=== PATIENT | male | born 1960 | race American Indian/Alaskan Native ===

== ENCOUNTER 2019-06-06 18:17 | Emergency (ER) | payer SELFPAY ==
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
[2019-06-06] MEDS ORDERED: TORADOL IM ONE (19:56)
[2019-06-06] MEDS ORDERED: TORADOL ONE (20:09)
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
[2019-06-06 22:03] VITALS: BP 110/72
== END 2019-06-06 22:03 | disposition home or self-care (01) ==
LOC: ED 18:17
DX: S39.012A Strain of muscle, fascia and tendon of lower back, initial encounter (principal); M51.37 Other intervertebral disc degeneration, lumbosacral region; F17.200 Nicotine dependence, unspecified, uncomplicated; Z79.899 Other long term (current) drug therapy; V43.52XA Car driver injured in collision with other type car in traffic accident, initial encounter; Y93.89 Activity, other specified; Y92.488 Other paved roadways as the place of occurrence of the external cause; Y99.8 Other external cause status
CPT/HCPCS: 72100; 96372; 99283; J1885